=== PATIENT | male | born 1950 | race African-American/Black ===

== ENCOUNTER 2022-01-04 12:38 | Emergency (ER) | payer MEDICAID ==
[~2022-01-04] VITALS: Ht 165.1 cm; Wt 68.0 kg
--- NOTE | 2022-01-04 13:30 | NUR ---
RECIVED PT 71 YRS MALE walking in to ed with his frind c/o unable to see will and elevated bs
--- NOTE | 2022-01-04 14:05 | NUR ---
SEEN BY DR. ACEVEDO
--- NOTE | 2022-01-04 14:20 | NUR ---
INSERTED ANGO CATHTER G20 IVF NS INFUSD AND PATENT
[2022-01-04] MEDS ORDERED: IV NS 0.9% 1,000 ML BAG IV ONE (14:30)
--- NOTE | 2022-01-04 14:30 | NUR ---
BLOOD DROW BY LAB TACH AT BED SIDE
--- NOTE | 2022-01-04 14:32 | NUR ---
ACCUCHECK DONE 166MG/LD DR. ACEVEDO NOTEFYED
--- NOTE | 2022-01-04 14:40 | NUR ---
TO CT SCAN OF HEAD
[2022-01-04 14:44] LABS: BASOPHILS % (AUTO) 0.6 % (0.0-2.0); EOSINOPHILS % (AUTO) 0.9 % (0.0-6.0); HEMATOCRIT 43 % (39-51); HEMOGLOBIN 14.3 g/dL (13.5-17.5); LYMPHOCYTES # (AUTO) 1.6 K/uL (0.8-4.8); LYMPHOCYTES % (AUTO) 24.7 % (20.0-44.0); MEAN CORPUSCULAR HGB CONC 33 g/dl (31.0-36.0); MEAN CORPUSCULAR VOLUME 92 fL (80-96); MONOCYTES # (AUTO) 0.4 K/uL (0.1-1.30); MONOCYTES % (AUTO) 7.1 % (2.0-12.0); NEUTROPHILS # (AUTO) 4.2 K/uL (1.8-8.9); NEUTROPHILS % (AUTO) 66.7 % (43.0-81.0); PLATELET COUNT (AUTO) 287 K/uL (150-450); WHITE BLOOD COUNT (AUTO) 6.3 K/uL (4.3-11.0)
[2022-01-04 14:55] LABS: CREATININE 0.9 mg/dL (0.6-1.3); POTASSIUM 4.1 mmol/L (3.5-5.1)
[2022-01-04 15:13] LABS: ALBUMIN 3.7 g/dL (3.4-5.0); BILIRUBIN,DIRECT 0.1 mg/dL (0.0-0.2); BILIRUBIN,TOTAL 0.4 mg/dL (0.2-1.0); TOTAL PROTEIN, SERUM 7.9 g/dL (6.4-8.2)
[2022-01-04 15:15] LABS: THYROID STIMULATING HORMONE 1.186 uIU/mL (0.358-3.74)
--- NOTE | 2022-01-04 15:55 | NUR ---
DINESES ANY PAIN D/C INSTRACTION GIVEN TO PT fully and verblized understood d/c home with faalow up care no sz no weekness
[2022-01-04 16:17] VITALS: BP 115/78
== END 2022-01-04 16:18 | disposition home or self-care (01) ==
LOC: ER 12:41
DX: H26.9 Unspecified cataract (principal); G40.909 Epilepsy, unspecified, not intractable, without status epilepticus; R94.31 Abnormal electrocardiogram [ECG] [EKG]
CPT/HCPCS: 99285; 96360; 70450; 71045; 93005; 85025; 80048; 80076; 36415; 84443; 85730; 82962; J7030